=== PATIENT | male | born 1960 | race Caucasian/White ===

== ENCOUNTER → 2018-07-02 | Outpatient (CLI) | payer BC ==
--- NOTE | 2018-07-02 15:22 | Diagnostic Imaging Report ---
EXAMINATION: Right upper quadrant ultrasound CLINICAL INDICATION: Abnormal liver function tests COMPARISON: None DISCUSSION: Transverse and longitudinal images of the right upper quadrant were obtained. The liver is increased in size measuring 17.6centimeters in length in the right midclavicular line and shows normal increased. No focal masses are seen in the liver. There is no intrahepatic biliary dilatation. The common bile duct is normal in caliber and measures 0.4 cm. The main portal vein is normal in caliber and measures 0.8 cm with normal hepatopetal flow. The gallbladder is normal in appearance without stones, wall thickening or pericholecystic fluid. The sonographic Pérez's sign is negative. The visualized portions of the pancreatic body are unremarkable. The right kidney measures 10.3 centimeters in length. There is normal renal cortical echogenicity and no hydronephrosis, mass or shadowing calculi. The visualized portions of the great vessels are normal. No free fluid is seen. IMPRESSION: Mild hepatomegaly with increased echogenicity can be seen in hepatic steatosis or other chronic inflammatory condition. Signed by: Dr. Jonathan Guzman M.D. on 07/02/2018 3:19 PM
== END ==
LOC: US 14:32
PROVIDERS: ATTEND Internal Medicine Interventional Cardiology
DX: R94.5 Abnormal results of liver function studies (principal)
CPT/HCPCS: 76705

== ENCOUNTER → 2019-05-09 | Day surgery (SDC) | payer BC ==
[2019-05-05 16:11] LABS: BASOPHILS # (AUTO) 0.1 (0.0-0.1); BASOPHILS % 0.7 % (0.0-1.0); EOSINOPHILS # (AUTO) 0.1 (0.0-0.4); EOSINOPHILS % 0.9 % (0.0-6.0); HEMOGLOBIN 14.1 g/dL (14.0-18.0); LYMPHOCYTES # (AUTO) 2.6 (1.0-3.2); LYMPHOCYTES % 36.6 % (18.0-39.1); MEAN CORPUSCULAR HEMOGLOBIN 31.2 pg (28-32); MEAN CORPUSCULAR HGB CONC 33.6 g/dL (31-35); MEAN CORPUSCULAR VOLUME 92.9 fL (81-99); MONOCYTES # (AUTO) 0.6 (0.2-0.8); MONOCYTES % 8.3 % (4.4-11.3); NEUTROPHILS # (AUTO) 3.7 (2.1-6.9); NEUTROPHILS % 53.2 % (38.7-80.0); PLATELET COUNT 228 x10e3/uL (140-360); RED BLOOD COUNT 4.52 x10e6/uL (4.3-5.7); RED CELL DISTRIBUTION WIDTH 12.7 % (11.7-14.4)
[2019-05-05 16:25] LABS: ANION GAP 13.9 mmol/L (8-16); BLOOD UREA NITROGEN 17 mg/dL (7-26); BUN/CREATININE RATIO 21 (6-25); CALCIUM 9.9 mg/dL (8.4-10.2); CARBON DIOXIDE 26 mmol/L (22-29); CHLORIDE 106 mmol/L (98-107); CREATININE, SERUM 0.82 mg/dL (0.72-1.25); EST GLOMERULAR FILTRATION RATE > 60 ML/MIN (60-); GLUCOSE 94 mg/dL (74-118); POTASSIUM 3.9 mmol/L (3.5-5.1); SODIUM 142 mmol/L (136-145)
[~2019-05-09] MED LIST: ACETAMINOPHEN 1000 MG/100 ML IV ONE; BENICAR20 MG PO; BUPIVACAINE 0.25%/EPI 30ML SDV INJ ONE; CRESTOR10 MG PO; DEXAMETHASONE SOD PHOS INJ 4 MG/ML VIAL ONE; EPHEDRINE SULFATE INJ 50 MG/10 ML SYR ONE; FENTANYL CITRATE/PF 100MCG/2 ML INJ ONE; KETOROLAC TROMETHAMINE 30 MG/ML VIAL ONE; LIDOCAINE HCL 1% LOCAL INJ 20 ML VIAL ONE; LIDOCAINE HCL 2% LOCAL INJ 5 ML SDV VIAL INJ ONE; MIDAZOLAM HCL 2 MG/2 ML VIAL ONE; ONDANSETRON HCL INJ 2MG/ML 2ML 2 MG/ML VIAL ONE; PHENYLEPHRINE HCL 1% 10 MG/ML VIAL ONE; PROPOFOL IV EMULSION 10 MG/ML 20 ML VIAL ONE; SEVOFLURANE INHAL SOLN 250 ML PEN BTL ONE; VASOPRESSIN INJ 20 UNIT/ML VIAL ONE; VENLAFAXINE HCL75 M2 PO; ZETIA10 MG PO
--- OUTSIDE RECORDS SUMMARY | 2019-05-09 07:58 | XMS REPORT ---
Author Author [facility] Address Unknown Phone Unavailable Care Team Providers Care Faculty Physician Name Role Phone SAMUEL MAYA Unavailable Unavailable Problems This patient has no known problems. Allergies, Adverse Reactions, Alerts This patient has no known allergies or adverse reactions. Medications This patient has no known medications. Results Test Description Test Time Test Comments Text Results Atomic Results Result Comments US LIVER 2018-07-02 15:18:00 [place] [address] Patient Name: LORRI CARDENAS MR #: [id number] : 1960 Age/Sex: 57/M Req #: [id number] Adm Physician: Ordered by: SAMUEL MAYA MD Report #: [id number] Location: Room/Bed: Procedure: [id number] US/US LIVER Exam Date: Exam Time: REPORT STATUS: Signed EXAMINATION: Right upper quadrant ultrasound CLINICAL INDICATION: Abnormal liver function tests COMPARISON: None DISCUSSION: Transverse and longitudinal images of the right upper quadrant were obtained. The liver is increased in size measuring 17.6centimeters in length in the right midclavicular line and shows normal increased. No focal masses are seen in the liver. There is no intrahepatic biliary dilatation. The common bile duct is normal in caliber and measures 0.4 cm. The main portal vein is normal in caliber and measures 0.8 cm with normal hepatopetal flow. The gallbladder is normal in appearance without stones, wall thickening or pericholecystic fluid. The sonographic Pérez's sign is negative. The visualized portions of the pancreatic body are unremarkable. The right kidney measures 10.3 centimeters in length. There is normal renal cortical echogenicity and no hydronephrosis, mass or shadowing calculi. The visualized portions of the great vessels are normal. No free fluid is seen. IMPRESSION: Mild hepatomegaly with increased echogenicity can be seen in hepatic steatosis or other chronic inflammatory condition. Signed by: Dr. Dianna Pickett M.D. on 07/02/2018 3:19 PM Dictated By: DIANNA PICKETT MD 1519 Transcribed By: NURIS on 07/02/18 1519 COPY TO: SAMUEL MAYA MD
--- NOTE | 2019-05-09 12:18 | Operative Report ---
DATE OF PROCEDURE: 05/09/2019 SURGEON: Manny Brewer MD PREOPERATIVE DIAGNOSIS: Right inguinal hernia. POSTOPERATIVE DIAGNOSIS: Large direct right inguinal hernia. OPERATION PERFORMED: Repair of right direct inguinal hernia with extended Prolene Hernia System. CARPENTER CRADLE AND DOLLY: SINAN Garvey. ANESTHESIA: General. COMPLICATIONS: None. ESTIMATED BLOOD LOSS: Minimal. DESCRIPTION OF PROCEDURE: With the patient lying in bed in the supine position under good general anesthesia, the abdomen was prepped with Betadine solution and draped in the usual manner. A right inguinal incision was made. It was carried down through the subcutaneous tissue down to the external oblique aponeurosis. The external oblique was opened along the length of its fibers and external inguinal ring was opened. The cord was then mobilized and retracted. Exploration of the cord did not reveal the presence of any indirect hernia sac. There was, however, a complete blow out of the direct space with a large bulging hernia present. The direct hernia was then imbricated with a pursestring suture of 0 Ethibond. After this was done, the preperitoneal space was entered right through the internal ring and a pocket was created without any difficulty. An extended Prolene Hernia System was placed in the preperitoneal space and the underlay patch was deployed without any problems. The overlay patch was then placed over the floor and split inferolaterally to allow for passage of the cord. The mesh was then sutured to the conjoined tendon and the inguinal ligament using interrupted sutures of 2-0 Vicryl. The whole area was thoroughly irrigated. Perfect hemostasis was ascertained. All layers were infiltrated on the way out with solution of 0.25% Marcaine and 1% lidocaine mixed in equal parts. The external oblique aponeurosis was closed with a running suture of 2-0 Vicryl. The subcutaneous tissue was approximated with 3-0 plain and the skin was closed with clips. A dressing was applied. The sponge, lap, and needle count was correct. The patient tolerated the procedure well and returned to the recovery room in stable condition. Manny Brewer MD JLR/MODL /[id number]
[2019-05-09 13:05] VITALS: BP 129/82
== END | disposition home or self-care (01) ==
LOC: OR 07:56
PROVIDERS: ATTEND Surgery
DX: K40.90 Unilateral inguinal hernia, without obstruction or gangrene, not specified as recurrent (principal); I10 Essential (primary) hypertension; G47.33 Obstructive sleep apnea (adult) (pediatric); R05 Cough; Z01.810 Encounter for preprocedural cardiovascular examination; Z01.812 Encounter for preprocedural laboratory examination
CPT/HCPCS: 36415; 49505; 80048; 85025; 93005; C1781; J0131; J1100; J1885; J2001 ×2; J2250; J2370; J2405; J2704; J3010

== ENCOUNTER → 2019-06-06 | Day surgery (SDC) | payer BC ==
[2019-05-24 10:55] LABS: BASOPHILS # (AUTO) 0.1 (0.0-0.1); BASOPHILS % 0.8 % (0.0-1.0); EOSINOPHILS # (AUTO) 0.1 (0.0-0.4); EOSINOPHILS % 0.9 % (0.0-6.0); HEMATOCRIT 42.3 % (38.2-49.6); HEMOGLOBIN 14.3 g/dL (14.0-18.0); LYMPHOCYTES # (AUTO) 2.6 (1.0-3.2); MEAN CORPUSCULAR HEMOGLOBIN 31.4 pg (28-32); MEAN CORPUSCULAR HGB CONC 33.8 g/dL (31-35); MONOCYTES # (AUTO) 0.5 (0.2-0.8); MONOCYTES % 5.6 % (4.4-11.3); NEUTROPHILS # (AUTO) 5.3 (2.1-6.9); NEUTROPHILS % 61.3 % (38.7-80.0); PLATELET COUNT 283 x10e3/uL (140-360); RED BLOOD COUNT 4.55 x10e6/uL (4.3-5.7); RED CELL DISTRIBUTION WIDTH 12.2 % (11.7-14.4)
[2019-05-24 11:13] LABS: ANION GAP 15.2 mmol/L (8-16); BLOOD UREA NITROGEN 19 mg/dL (7-26); BUN/CREATININE RATIO 22 (6-25); CALCIUM 9.8 mg/dL (8.4-10.2); CARBON DIOXIDE 30 mmol/L (22-29); CHLORIDE 105 mmol/L (98-107); CREATININE, SERUM 0.86 mg/dL (0.72-1.25); EST GLOMERULAR FILTRATION RATE > 60 ML/MIN (60-); GLUCOSE 105 mg/dL (74-118); POTASSIUM 4.2 mmol/L (3.5-5.1); SODIUM 146 mmol/L (136-145)
[~2019-06-06] MED LIST changes: -ACETAMINOPHEN 1000 MG/100 ML IV ONE; +CEFAZOLIN SOD 1 GM VIAL ONE; -EPHEDRINE SULFATE INJ 50 MG/10 ML SYR ONE; +GLYCOPYRROLATE INJ 0.2 MG/ML VIAL ONE; +NEOSTIGMINE 1 MG/ML 10ML VIAL ONE; +ROCURONIUM BROMIDE 10 MG/ML 5ML VIAL ONE; -VASOPRESSIN INJ 20 UNIT/ML VIAL ONE
[2019-06-06 13:25] VITALS: BP 125/83
--- NOTE | 2019-06-06 17:07 | Operative Report ---
DATE OF PROCEDURE: 06/06/2019 SURGEON: Manny Brewer MD PREOPERATIVE DIAGNOSES: Left inguinal hernia and umbilical hernia. POSTOPERATIVE DIAGNOSES: Left inguinal hernia and umbilical hernia. OPERATIONS PERFORMED: Repair of left inguinal hernia with Prolene Hernia System and repair of umbilical hernia with Ventralex mesh. ANESTHESIA: General. COMPLICATIONS: None. ESTIMATED BLOOD LOSS: Minimal. DESCRIPTION OF PROCEDURE: With the patient lying in bed in the supine position under good general anesthesia, the abdomen was prepped with Betadine solution and draped in the usual manner. A left inguinal incision was made. It was carried down through the subcutaneous tissue down to the external oblique aponeurosis. External oblique was then opened along the length of its fibers and the external inguinal ring was opened. The cord was then mobilized and retracted. Contained within the cord was a lipoma of the cord, which was from the cord structures, ligated with 2-0 Vicryl and divided. There was no indirect hernia sac present. There was, however, a large bulging hernia in the direct space. The preperitoneal space was then entered right through the internal ring and a pocket was created without any difficulty. An extended Prolene Hernia System was placed in the preperitoneal space and the underlay patch was deployed without any problems. The overlay patch was then placed over the floor and split inferolaterally to allow for passage of the cord. The mesh was then sutured to the conjoined tendon and the inguinal ligament using interrupted sutures of 2-0 Vicryl. The whole area was thoroughly irrigated. Perfect hemostasis was ascertained. All layers were infiltrated on the way out with solution of 0.25% Marcaine and 1% lidocaine mixed in equal parts. The external oblique aponeurosis was closed with a running suture of 2-0 Vicryl. The subcutaneous tissue was approximated with 3-0 plain and the skin was closed with clips. A similar subumbilical incision was then made. It was carried down through the subcutaneous tissue down to the fascia. The hernia sac was then encircled with normal fascia all the way around. The umbilicus was then detached from the hernia sac and the hernia contents were reduced back to the intra-abdominal cavity. A medium-sized Ventralex patch was then placed intraperitoneally without any difficulty through the hernia defect and deployed without any problems. The defect was then closed transversely using interrupted sutures of 0 Ethibond anchoring the mesh with the closure. This gave us a satisfactory closure without any tension. The whole area was thoroughly irrigated. Perfect hemostasis was ascertained. All layers were infiltrated on the way out with solution of 0.25% Marcaine. The umbilicus was then tacked back down to the midline fascia with 3-0 Vicryl. The subcutaneous tissue was approximated with 3-0 Vicryl and the skin was closed with interrupted vertical mattress sutures of 3-0 silk. A dressing was applied. The sponge, lap, and needle count was correct. The patient tolerated both procedures well and returned to the recovery room in stable condition. MD ANA Ashley/HAMMAD /[id number]
== END | disposition home or self-care (01) ==
LOC: OR 07:46
PROVIDERS: ATTEND Surgery
DX: K40.90 Unilateral inguinal hernia, without obstruction or gangrene, not specified as recurrent (principal); K42.9 Umbilical hernia without obstruction or gangrene; Z01.810 Encounter for preprocedural cardiovascular examination; Z01.812 Encounter for preprocedural laboratory examination; G47.30 Sleep apnea, unspecified; E78.00 Pure hypercholesterolemia, unspecified; F32.9 Major depressive disorder, single episode, unspecified; I10 Essential (primary) hypertension
CPT/HCPCS: 36415; 49505; 49585; 80048; 85025; J0690; J1100; J1885; J2001 ×2; J2250; J2370; J2405; J2704; J2710; J3010; C1781